=== PATIENT | male | born 1985 | race Two or more races ===

== ENCOUNTER → 2022-11-19 | Outpatient (CLI) | payer OTHER ==
[2022-11-19 09:35] LABS: Basophils # (auto) 0 10 ^3/uL (0-0.2); Basophils % (auto) 0.7 % (0.0-2.0); Eosinophils # (auto) 0.1 10 ^3/uL (0-0.8); Eosinophils % (auto) 1.3 % (0.0-7.0); Hematocrit 48.7 % (41.0-53.0); Hemoglobin 16.2 g/dL (13.5-17.5); Lymphocytes # (auto) 2.2 10 ^3/uL (0.4-5.4); Lymphocytes % (auto) 37.1 % (10.0-50.0); Mean Corpuscular Hgb Conc. 33.3 g/dL (32.0-36.0); Monocytes # (auto) 0.4 10 ^3/uL (0-1.3); Monocytes % (auto) 7.1 % (0.0-12.0); Neutrophils # (auto) 3.2 10 ^3/uL (1.6-8.6); Neutrophils % (auto) 53.8 % (37.0-80.0); Nucleated Red Blood Cells % 0.1 %; Red Blood Cells 5.41 10^6/uL (4.5-5.90); Red Cell Distribution Width 13.1 % (11.8-14.3)
[2022-11-19 09:36] LABS: Urine Bacteria NONE SEEN /hpf (None Seen); Urine Blood Negative /uL (Negative); Urine Clarity Clear (Clear); Urine Protein, UAD Negative (Negative); Urine Specific Gravity 1.019 (1.001-1.035); Urine Urobilinogen Normal (Negative); Urine WBC <1 /hpf (0 - 3); Urine pH 6.5 (5.0-8.0)
[2022-11-19 09:37] LABS: Urine Color Straw (Yellow)
[2022-11-19 10:08] LABS: Alanine Aminotransferase 23 U/L (7-40); Alkaline Phosphatase 66 U/L (46-116); Anion Gap 7.7 (5-15); BUN/Creatinine Ratio 17.1 (10.0-20.0); Blood Urea Nitrogen 18 mg/dL (9-23); Calcium 9.2 mg/dL (8.5-10.1); Carbon Dioxide 26.3 mmol/L (20-30); Chloride 105 mmol/L (98-107); Glucose 86 mg/dL (74-106); Potassium 4.2 mmol/L (3.5-5.1); Sodium 139 mmol/L (136-145); Triglycerides 42 mg/dL (< 150)
[2022-11-19 10:09] LABS: LDL Cholesterol 114 mg/dL (< 100)
[2022-11-19 10:10] LABS: Albumin 4.4 g/dL (3.2-4.8); Aspartate Aminotransferase 16 U/L (13-40); Bilirubin, Total 1.4 mg/dL (0.2-1.0); Cholesterol 180 mg/dL (< 200); HDL Cholesterol 62 mg/dL (40-59)
[2022-11-19 10:11] LABS: Total Protein 7.5 g/dL (5.7-8.2)
[2022-11-21 04:06] LABS: Chlamydia Trachomatis, NAA Negative (Negative); Neisseria gonorrhoeae, NAA Negative (Negative)
[2022-11-21 12:07] LABS: QuantiFERON-TB Gold Plus Negative (Negative)
== END | disposition home or self-care (01) ==
LOC: LAB 08:39
PROVIDERS: ATTEND Family Medicine
DX: Z00.01 Encounter for general adult medical examination with abnormal findings (principal)
CPT/HCPCS: 36415; 80053; 80061; 81001; 83036; 84443; 85025

== ENCOUNTER → 2023-05-04 | Outpatient (CLI) | payer OTHER ==
[2023-05-04 09:33] LABS: Albumin 4.3 g/dL (3.2-4.8); Bilirubin, Direct 0.5 mg/dL (<0.3)
[2023-05-04 09:34] LABS: Bilirubin, Total 1.6 mg/dL (0.2-1.0); Total Protein 7.4 g/dL (5.7-8.2)
== END | disposition home or self-care (01) ==
LOC: LAB 08:41
PROVIDERS: ATTEND Family Medicine
DX: E78.5 Hyperlipidemia, unspecified (principal); E80.6 Other disorders of bilirubin metabolism
CPT/HCPCS: 36415; 80061; 80076

== ENCOUNTER → 2023-11-10 | Outpatient (CLI) | payer OTHER ==
[2023-11-10 09:58] LABS: Urine Bacteria None Seen /hpf (None Seen)
[2023-11-10 10:30] LABS: Basophils # (auto) 0 10 ^3/uL (0-0.2); Basophils % (auto) 0.8 % (0.0-2.0); Eosinophils # (auto) 0 10 ^3/uL (0-0.8); Hematocrit 47.1 % (41.0-53.0); Hemoglobin 16.2 g/dL (13.5-17.5); Lymphocytes # (auto) 1.9 10 ^3/uL (0.4-5.4); Lymphocytes % (auto) 38.7 % (10.0-50.0); Mean Corpuscular Hemoglobin 30.6 pg (28.0-32.0); Mean Corpuscular Hgb Conc. 34.3 g/dL (32.0-36.0); Mean Corpuscular Volume 89.3 fL (80.0-100.0); Monocytes # (auto) 0.4 10 ^3/uL (0-1.3); Monocytes % (auto) 8.1 % (0.0-12.0); Neutrophils # (auto) 2.5 10 ^3/uL (1.6-8.6); Neutrophils % (auto) 51.4 % (37.0-80.0); Platelet Count (auto) 223 10^3/uL (140-450); Red Blood Cells 5.27 10^6/uL (4.5-5.90); Red Cell Distribution Width 13.2 % (11.8-14.3); White Blood Cell 4.8 10^3/uL (4.4-10.8)
[2023-11-10 10:46] LABS: Alanine Aminotransferase 15 U/L (7-40); Albumin 4.5 g/dL (3.2-4.8); Alkaline Phosphatase 66 U/L (46-116); Anion Gap 3 (5-15); Aspartate Aminotransferase 14 U/L (13-40); BUN/Creatinine Ratio 7.8 (10.0-20.0); Bilirubin, Total 1.5 mg/dL (0.2-1.0); Blood Urea Nitrogen 9 mg/dL (9-23); Calcium 9.8 mg/dL (8.7-10.4); Carbon Dioxide 31 mmol/L (20-30); Chloride 106 mmol/L (98-107); Cholesterol 169 mg/dL (< 200); Glucose 93 mg/dL (74-106); HDL Cholesterol 51 mg/dL (40-59); LDL Cholesterol 102 mg/dL (< 100); Potassium 4.8 mmol/L (3.5-5.1); Sodium 140 mmol/L (136-145); Total Protein 7.5 g/dL (5.7-8.2); Triglycerides 67 mg/dL (< 150)
[2023-11-10 11:01] LABS: Urine Blood Normal /uL (Negative); Urine Clarity CLEAR (Clear); Urine Color Yellow (Yellow); Urine Mucus FEW (None Seen); Urine Protein, UAD Normal (Negative); Urine Specific Gravity 1.025 (1.001-1.035); Urine Urobilinogen Normal (Negative); Urine WBC 1/HPF /hpf (0 - 3)
[2023-11-12 09:03] LABS: Hepatitis B Surface Antigen Negative (Negative)
[2023-11-12 09:24] LABS: Hepatitis B Core IgM Negative
[2023-11-12 09:25] LABS: Hepatitis A Ab IgM Negative
[2023-11-12 11:48] LABS: Hepatitis C Antibody Negative (Negative)
== END | disposition home or self-care (01) ==
LOC: LAB 09:39
PROVIDERS: ATTEND Family Medicine
DX: Z00.01 Encounter for general adult medical examination with abnormal findings (principal); E78.2 Mixed hyperlipidemia; E80.6 Other disorders of bilirubin metabolism; Z79.899 Other long term (current) drug therapy
CPT/HCPCS: 36415; 80053; 80061; 80074; 81001; 83036; 84443; 84550; 85025

== ENCOUNTER 2024-10-26 08:07 | Outpatient (CLI) | payer OTHER ==
[2024-10-26 09:09] LABS: Urine Protein, UAD Negative (Negative)
[2024-10-26 09:15] LABS: Hematocrit 48.0 % (41.0-53.0); Hemoglobin 16.3 g/dL (13.5-17.5); Mean Corpuscular Hemoglobin 30.3 pg (28.0-32.0); Mean Corpuscular Volume 89.3 fL (80.0-100.0); Nucleated Red Blood Cells % 0.1 %
[2024-10-26 09:34] LABS: Alanine Aminotransferase 24 U/L (7-40); Alkaline Phosphatase 70 U/L (46-116); Anion Gap 8 (5-15); BUN/Creatinine Ratio 15.1 (10.0-20.0); Blood Urea Nitrogen 16 mg/dL (9-23); Calcium 10.0 mg/dL (8.7-10.4); Carbon Dioxide 28 mmol/L (20-31); Chloride 105 mmol/L (98-107); Glucose 91 mg/dL (74-106); Potassium 4.1 mmol/L (3.5-5.1); Sodium 141 mmol/L (136-145); Total Protein 7.6 g/dL (5.7-8.2); Triglycerides 60 mg/dL (< 150)
[2024-10-26 09:35] LABS: Albumin 4.7 g/dL (3.2-4.8); Cholesterol 189 mg/dL (< 200)
[2024-10-26 09:36] LABS: Bilirubin, Direct 0.4 mg/dL (<0.3); HDL Cholesterol 62 mg/dL (40-59)
[2024-10-26 09:45] LABS: Bilirubin, Total 1.4 mg/dL (0.2-1.0)
[2024-10-26 10:59] LABS: Uric Acid 3.9 mg/dL (3.7-9.2)
== END 2024-10-26 17:00 | disposition home or self-care (01) ==
LOC: LAB 08:07
PROVIDERS: ATTEND Family Medicine
DX: E78.2 Mixed hyperlipidemia (principal); E80.6 Other disorders of bilirubin metabolism; K83.8 Other specified diseases of biliary tract; E78.5 Hyperlipidemia, unspecified; Z00.01 Encounter for general adult medical examination with abnormal findings; Z11.8 Encounter for screening for other infectious and parasitic diseases; Z13.89 Encounter for screening for other disorder
CPT/HCPCS: 36415; 80053; 80061; 80076; 81001; 83036; 84443; 84550; 85025

== ENCOUNTER → 2025-02-07 | Outpatient (CLI) | payer OTHER ==
[2025-02-07 11:02] LABS: Hematocrit 48.2 % (41.0-53.0); Hemoglobin 16.8 g/dL (13.5-17.5); Mean Corpuscular Hemoglobin 30.9 pg (28.0-32.0); Mean Corpuscular Volume 88.8 fL (80.0-100.0); Nucleated Red Blood Cells % 0.2 %
[2025-02-07 11:29] LABS: Alanine Aminotransferase 16 U/L (7-40); Albumin 4.8 g/dL (3.2-4.8); Alkaline Phosphatase 70 U/L (46-116); Anion Gap 12 (5-15); BUN/Creatinine Ratio 8.7 (10.0-20.0); Blood Urea Nitrogen 16 mg/dL (9-23); Calcium 9.9 mg/dL (8.7-10.4); Carbon Dioxide 29 mmol/L (20-31); Chloride 101 mmol/L (98-107); Glucose 102 mg/dL (74-106); Sodium 142 mmol/L (136-145); Uric Acid 6.1 mg/dL (3.7-9.2)
[2025-02-07 11:38] LABS: Bilirubin, Total 2.2 mg/dL (0.2-1.0); Potassium 5.1 mmol/L (3.5-5.1); Total Protein 8.4 g/dL (5.7-8.2)
[2025-02-07 16:34] LABS: Triglycerides 83 mg/dL (< 150)
[2025-02-07 16:35] LABS: Cholesterol 186 mg/dL (< 200)
[2025-02-07 16:36] LABS: HDL Cholesterol 62 mg/dL (40-59)
[2025-02-07 16:48] LABS: Microalb/Creat Ratio, Urine 8.0
== END | disposition home or self-care (01) ==
LOC: LAB 10:09
PROVIDERS: ATTEND Family Medicine
DX: E78.5 Hyperlipidemia, unspecified (principal); E80.6 Other disorders of bilirubin metabolism
CPT/HCPCS: 36415; 80053; 80061; 82043; 82570; 83036; 84443; 84550; 85025